=== PATIENT | female | born 2000 | race Caucasian/White ===

== ENCOUNTER 2022-07-29 06:42 | Day surgery (SDC) | payer MEDICAID ==
[2022-07-28 12:03] LABS: BASOPHILS % (AUTO) 0.7 % (0-1); EOSINOPHILS # (AUTO) 0.1 X10'3 (0-0.9); EOSINOPHILS % (AUTO) 1.8 % (0-6); LYMPHOCYTES # (AUTO) 2.3 X10'3 (1.1-4.8); LYMPHOCYTES % (AUTO) 35.2 % (21-51); MEAN CORPUSCULAR HEMOGLOBIN 30.8 PG (27.0-31.0); MEAN CORPUSCULAR HGB CONC 33.1 g/dL (33.0-36.5); MEAN CORPUSCULAR VOLUME 92.9 FL (78-98); MEAN PLATELET VOLUME 7.7 FL (7.4-10.4); MONOCYTES # (AUTO) 0.5 X10'3 (0-0.9); MONOCYTES % (AUTO) 7.7 % (2-12); NEUTROPHILS # (AUTO) 3.5 X10'3 (1.8-7.7); NEUTROPHILS % (AUTO) 54.6 % (42-75); PRE OP HEMATOCRIT 40.9 % (35.0-45.0); PRE OP HEMOGLOBIN 13.6 g/dL (12.0-16.0); PRE OP PLATELET COUNT 235 X10'3 (140-440); RED BLOOD COUNT 4.41 X10'6 (4.20-5.60); RED CELL DISTRIBUTION WIDTH 12.8 % (11.5-14.5)
[2022-07-28 12:10] LABS: ALBUMIN 4.3 G/DL (3.4-5.0); ALBUMIN/GLOBULIN RATIO 1.3 (1.1-1.5); ALKALINE PHOSPHATASE 69 IU/L (46-116); BLOOD UREA NITROGEN 13 MG/DL (7-18); BUN/CREATININE RATIO 15.7 (6.6-38.0); CALCIUM 8.9 MG/DL (8.5-10.1); CHLORIDE 105 MMOL/L (99-107); CREATININE 0.83 MG/DL (0.40-0.90); PRE OP ALT 31 U/L (30-65); PRE OP ANION GAP 9 (8-16); PRE OP AST 20 U/L (10-37); PRE OP BILIRUB, TOTAL 0.3 MG/DL (0.0-1.0); PRE OP GLUCOSE 80 MG/DL (70-104); PRE OP POTASSIUM 3.8 MMOL/L (3.4-5.1); PRE OP SODIUM 142 MMOL/L (135-145); TOTAL CARBON DIOXIDE 27.9 MMOL/L (24-32); TOTAL PROTEIN 7.5 G/DL (6.4-8.2); eGFR 87 ML/MIN
[2022-07-28 12:24] LABS: HCG SERUM QL NEGATIVE
[~2022-07-29] VITALS: Ht 175.3 cm; Wt 65.3 kg
[2022-07-29] VITALS (9 sets, daily range): BP systolic 90–131; BP diastolic 60–96
[~2022-07-29 06:42] MED LIST: ERGO500054 PO; IBUP-1985 PO; TRAM50TA2 PO; ceFAZolin/D5W- 1GM premix 50 ML IV ONE; famotidine 20mg tablet PO ONE; ringers solution, lacted 1,000 ML IV SCH
[2022-07-29] MEDS ORDERED: bacitracin 15gm ointment TP ONE (07:56)
[2022-07-29] MEDS ORDERED: BUPIVAcaine 0.5% inj/PF 30 ML ONE (07:56)
--- NOTE | 2022-07-29 07:57 | NUR ---
pt prepared for surgery, vital signs stable, 20 g iv started inright hand without difficulty. pt prefers to be called Rebecca. Pt has a walking foot on her foot, right foot 2nd and 3rd toe has mild bruising. grandmother at bedside and will be patients ride home. she will be waiting in the waiting room.
[2022-07-29] MEDS ORDERED: morphine 2 MG/ML inj. syringe IV PRN (09:35)
[2022-07-29] MEDS ORDERED: ondansetron/PF 4mg/2ml inj IV PRN (09:35)
[2022-07-29] MEDS ORDERED: morphine 4 MG/ML inj SYRINge IV PRN (09:35)
[2022-07-29] MEDS ORDERED: meperidine/PF 25mg/ml syringe IV PRN ×3 (09:35)
[2022-07-29] MEDS ORDERED: proCHLORperazine 10 MG/2 ml inj IV PRN (09:35)
[2022-07-29] MEDS ORDERED: ringers solution, lacted 1,000 ML IV SCH (09:35)
[2022-07-29] MEDS ORDERED: sevoflurane 250ml liquid IH ONE (10:03)
--- NOTE | 2022-07-29 10:05 | NUR ---
pt very anxious, anesthesia and surgeon at bedside, foot marked by MD. pt disconnected to go to the bathroom.
[2022-07-29] MEDS ORDERED: midazolam 1 mg/ML 2ml injection ONE (10:07)
[2022-07-29] MEDS ORDERED: FENTANYL CITRATE/PF 50 MCG/1 ML VIAL ONE (10:07)
[2022-07-29] MEDS ORDERED: dexamethasone sod phosphate 4mg/ml inj. ONE (10:29)
[2022-07-29] MEDS ORDERED: propofol inj 20 ML IV ONE (10:29)
[2022-07-29] MEDS ORDERED: ondansetron/PF 4mg/2ml inj ONE (10:49)
--- NOTE | 2022-07-29 10:52 | NUR ---
Received from OR via [facility], accompanied by Anesthesiologist and report given by CELESTINA Anesthesiologist. PATIENT UNCONSCIOUS WITH LMA, NO S/S OF PAIN, V/S WNL, 20G TO RIGHT HAND, RIGHT FOOT TETE WRAP DRESSING W/ 4X4 C/D/I. ELEVATED AND APPLIED ICE PACK. Addendum: 07/29/22 at 1119 by Andry Obrien RN Amended: Links added.
[2022-07-29] MEDS ORDERED: BUPIVAcaine 0.5% inj/PF 30 ml vial IJ ONE (10:56)
--- NOTE | 2022-07-29 12:07 | NUR ---
ALL DISCHARGE CRITERIA HAS BEEN MET. VSS, PAIN AT A TOLERABLE LEVEL, ABLE TO SAFELY AMBULATE AND TRANSFER SELF. IV TAKEN OUT WITHOUT ANY COMPLICATIONS. ALL DISCHARGE INSTRUCTIONS COVERED WITH PATIENT AND ALL QUESTIONS ANSWERED. PATIENT TAKEN OUT VIA WHEELCHAIR WITH ALL BELONGINGS TO PERSONAL VEHICLE WHERE FAMILY DROVE PATIENT HOME. Addendum: 07/29/22 at 1228 by Andry Obrien RN Amended: Links added.
== END 2022-07-29 12:07 | disposition home or self-care (01) ==
LOC: PAS 06:42
PROVIDERS: ATTEND Podiatrist Foot & Ankle Surgery
DX: S92.911A Unspecified fracture of right toe(s), initial encounter for closed fracture (principal); F41.8 Other specified anxiety disorders; V89.2XXA Person injured in unspecified motor-vehicle accident, traffic, initial encounter; Y93.89 Activity, other specified; Y92.89 Other specified places as the place of occurrence of the external cause; Y99.8 Other external cause status; Z79.899 Other long term (current) drug therapy; Z98.890 Other specified postprocedural states
CPT/HCPCS: 28124; 36415; 73620; 80053; 82948; 84703; 85025; A6222; J0690; J1100; J2175; J2250; J2405; J2704; J3010; J7030; J7120; S0020; Z7506; Z7512; 76000; A4618; A6253; A6449; A7000